=== PATIENT | male | born 1970 | race Caucasian/White ===

== ENCOUNTER → 2016-10-31 | Day surgery (SDC) | payer BC ==
[~2016-10-31] VITALS: Ht 172.7 cm; Wt 136.1 kg
[~2016-10-31] MED LIST: BUPIVACAINE/EPIN 0.5% 30 ML VIAL As Ordered ONE; DESFLURANE 240 ML INHALANT As Ordered ONE; FLUT1SPR2; LIDOCAINE 2% INJ 100 MG/5 ML SDV (FOR ANES.) As Ordered ONE; LIDOCAINE W/EPINEPHRINE 1% 20ML VIAL As Ordered ONE; LR 1,000 ML IV ONE; LR 1,000 ML IV SCH; METOCLOPRAMIDE INJ 10MG/2ML VIAL (J2765) As Ordered ONE; MIDAZOLAM INJ 2 MG/2 ML VIAL (J2250) As Ordered ONE; MORPHINE 10 MG/ML 1ML VIAL IV PRN; NAPR500T3 PO; ONDANSETRON 4MG/2ML VIAL (J2405) As Ordered ONE; ONDANSETRON 4MG/2ML VIAL (J2405) IV PRN; PERC5TAB12 PO; PERCOCET 5MG/325MG TAB PO ONE; PERCOCET 5MG/325MG TAB PO PRN; PROPOFOL 200 MG/20 ML VIAL As Ordered ONE; ROCURONIUM BROMIDE 50 MG/5 ML VIAL/SYRINGE As Ordered ONE; SERT-138 PO; SUCCINYLCHOLINE 100 MG/5 ML SYRINGE (J0330) As Ordered ONE; fentaNYL 100 MCG/2 ML INJECTION (J3010) As Ordered ONE
[2016-10-31] MEDS: fentaNYL 100 MCG/2 ML INJECTION (J3010) IV PRN ×4 (12:12→12:37)
[2016-10-31 13:55] VITALS: BP 144/78
--- NOTE | 2016-11-01 10:41 | RO ---
DATE OF PROCEDURE: 10/31/2016 PREPROCEDURE DIAGNOSIS: Chronic tonsillitis. POSTPROCEDURE DIAGNOSIS: Chronic tonsillitis. OPERATIVE PROCEDURE: Tonsillectomy. SURGEON: Elvis Ortiz MD CORPORATE ETHICS OFFICER: ANESTHESIA: DESCRIPTION OF PROCEDURE: Under general anesthesia with the patient intubated, a Reynaga-Vamsi mouth gag was inserted. The tonsil area was infiltrated with lidocaine, epinephrine and Marcaine. Using a Coblator setting of 6 and 4, the tonsil was dissected free from its bed on both sides. The base and apex and other areas were cauterized using a setting 4 on the Coblator. Procedure performed on both sides. No blood loss. A nasogastric tube was passed to suction the upper esophagus. Patient tolerated the procedure well, was extubated and transferred to the recovery room in excellent condition.
== END | disposition home or self-care (01) ==
LOC: M SDC 09:18
PROVIDERS: ATTEND Otolaryngology
DX: J35.01 Chronic tonsillitis (principal); K57.32 Diverticulitis of large intestine without perforation or abscess without bleeding; M51.26 Other intervertebral disc displacement, lumbar region; M50.30 Other cervical disc degeneration, unspecified cervical region; L30.9 Dermatitis, unspecified; R06.83 Snoring; G47.33 Obstructive sleep apnea (adult) (pediatric); Z88.0 Allergy status to penicillin; Z79.899 Other long term (current) drug therapy; Z87.891 Personal history of nicotine dependence
CPT/HCPCS: 42826; 88302; J0330; J2250; J2405; J2765; J3010

== ENCOUNTER → 2022-05-08 | Outpatient (REF) ==
[~2022-05-08] MED LIST changes: -BUPIVACAINE/EPIN 0.5% 30 ML VIAL As Ordered ONE; -DESFLURANE 240 ML INHALANT As Ordered ONE; -LIDOCAINE 2% INJ 100 MG/5 ML SDV (FOR ANES.) As Ordered ONE; -LIDOCAINE W/EPINEPHRINE 1% 20ML VIAL As Ordered ONE; -LR 1,000 ML IV ONE; -LR 1,000 ML IV SCH; -METOCLOPRAMIDE INJ 10MG/2ML VIAL (J2765) As Ordered ONE; -MIDAZOLAM INJ 2 MG/2 ML VIAL (J2250) As Ordered ONE; -MORPHINE 10 MG/ML 1ML VIAL IV PRN; +NAPR-885 PO; -NAPR500T3 PO; -ONDANSETRON 4MG/2ML VIAL (J2405) As Ordered ONE; -ONDANSETRON 4MG/2ML VIAL (J2405) IV PRN; -PERCOCET 5MG/325MG TAB PO ONE; -PERCOCET 5MG/325MG TAB PO PRN; -PROPOFOL 200 MG/20 ML VIAL As Ordered ONE; -ROCURONIUM BROMIDE 50 MG/5 ML VIAL/SYRINGE As Ordered ONE; -SUCCINYLCHOLINE 100 MG/5 ML SYRINGE (J0330) As Ordered ONE; -fentaNYL 100 MCG/2 ML INJECTION (J3010) As Ordered ONE
== END ==
LOC: M PLAIMG 11:26
PROVIDERS: ATTEND Internal Medicine
DX: R52 Pain, unspecified (principal)

== ENCOUNTER 2024-08-19 13:22 | Emergency (ER) | payer BC, OTHER ==
[~2024-08-19] VITALS: Ht 172.7 cm; Wt 136.9 kg
[2024-08-19] MEDS ORDERED: PREG50CA3 (13:32)
[2024-08-19] MEDS ORDERED: SILD20TA11 (13:32)
[2024-08-19] MEDS ORDERED: CYCL5TAB4 (13:32)
[2024-08-19] MEDS ORDERED: VITA200044 (13:32)
[2024-08-19] MEDS ORDERED: DULO1CAP6 (13:32)
[2024-08-19] MEDS: KETOROLAC 30 MG/ML 1ML VIAL IM ONE (14:48)
[2024-08-19 15:17] VITALS: BP 136/67; TEMP 97.7; O2SAT 95
== END 2024-08-19 15:21 | disposition home or self-care (01) ==
LOC: EDBD 13:22 → M ED 13:22
DX: S39.92XA Unspecified injury of lower back, initial encounter (principal); W10.9XXA Fall (on) (from) unspecified stairs and steps, initial encounter; Y92.009 Unspecified place in unspecified non-institutional (private) residence as the place of occurrence of the external cause; Y93.9 Activity, unspecified; Y99.9 Unspecified external cause status; K57.92 Diverticulitis of intestine, part unspecified, without perforation or abscess without bleeding; G47.33 Obstructive sleep apnea (adult) (pediatric); Z98.1 Arthrodesis status; Z87.891 Personal history of nicotine dependence; Z79.899 Other long term (current) drug therapy; Z88.0 Allergy status to penicillin
CPT/HCPCS: 72110; 73502; 96372; 99284; J1885